=== PATIENT | male | born 1940 | race Two or more races ===

== ENCOUNTER 2018-08-07 03:34 | Emergency (ER) | payer MEDICARE, OTHER ==
[~2018-08-07] VITALS: Ht 165.1 cm; Wt 70.3 kg
--- NOTE | 2018-08-07 03:40 | NUR ---
PT BB RA FROM HOME FOR HEAD LAC S/P ARGUMENT -KO. SOILED BANDAGE NOTED ON HEAD. NAD NOTED. RESP EVEN AND UNLABORED. PT ON MONITOR IN BED 10. WILL CONTINUE TO MONITOR.
[2018-08-07] MEDS ORDERED: ACETAMINOPHEN 325 MG TABLET ONE (03:51)
[2018-08-07] MEDS ORDERED: TDAP [DIPH/PERTUSSIS/TET] 0.5 ML VIAL IM ONE ×2 (03:51→04:00)
[2018-08-07] MEDS ORDERED: LIDOCAINE 2%-EPI 1:100,000 30 ML VIAL ONE (03:52)
[2018-08-07] MEDS ORDERED: LIDOCAINE 1%-EPI 1:100,000 50 ML VIAL IJ ONE (04:00)
[2018-08-07] MEDS ORDERED: ACETAMINOPHEN 325 MG TABLET PO ONE (04:00)
--- NOTE | 2018-08-07 04:02 | NUR ---
PT TAKEN TO RADIOLOGY VIA [facility]
--- NOTE | 2018-08-07 04:20 | NUR ---
POLICE AT BEDSIDE
--- NOTE | 2018-08-07 07:33 | NUR ---
GAVE REPORT TO JOSEPH TREVIZO FOR [facility]
--- NOTE | 2018-08-07 07:48 | NUR ---
gayathri cavazos/abi
--- NOTE | 2018-08-07 07:50 | NUR ---
pt provided w/ wound care. Patient discharged to home in stable condition. Written and verbal after care instructions given. Patient verbalizes understanding of instruction.
[2018-08-07 07:52] VITALS: BP 150/99
== END 2018-08-07 07:53 | disposition home or self-care (01) ==
LOC: EDBD 03:36 → ER 03:36
DX: S01.81XA Laceration without foreign body of other part of head, initial encounter (principal); S01.01XA Laceration without foreign body of scalp, initial encounter; I10 Essential (primary) hypertension; F17.210 Nicotine dependence, cigarettes, uncomplicated; Z88.5 Allergy status to narcotic agent; W26.8XXA Contact with other sharp object(s), not elsewhere classified, initial encounter; Y93.89 Activity, other specified; Y92.89 Other specified places as the place of occurrence of the external cause; Y99.8 Other external cause status
CPT/HCPCS: 12001; 12011; 70450; 72125; 90471; 90715; 99284; A6403; J3490; L0172

== ENCOUNTER 2018-08-12 15:31 | Emergency (ER) | payer MEDICARE ==
[~2018-08-12] VITALS: Ht 165.1 cm; Wt 69.9 kg
[2018-08-12 15:44] VITALS: BP 139/65
== END 2018-08-12 16:19 | disposition home or self-care (01) ==
LOC: ER 15:31
DX: T81.30XA Disruption of wound, unspecified, initial encounter (principal); S01.01XD Laceration without foreign body of scalp, subsequent encounter; F17.200 Nicotine dependence, unspecified, uncomplicated; I10 Essential (primary) hypertension; Z88.5 Allergy status to narcotic agent; X58.XXXD Exposure to other specified factors, subsequent encounter
CPT/HCPCS: 99283; A6402

== ENCOUNTER 2018-09-25 14:08 | Emergency (ER) | payer MEDICARE ==
[~2018-09-25] VITALS: Ht 162.6 cm; Wt 68.0 kg
[2018-09-25 14:08] VITALS: BP 140/99
[2018-09-25] MEDS ORDERED: TAMS-12 PO (14:22)
[2018-09-25] MEDS ORDERED: AMLO5TAB9 PO (14:22)
== END 2018-09-25 15:12 | disposition home or self-care (01) ==
LOC: ER 14:11
DX: R06.02 Shortness of breath (principal); I10 Essential (primary) hypertension; F17.200 Nicotine dependence, unspecified, uncomplicated; Z88.8 Allergy status to other drugs, medicaments and biological substances; Z60.2 Problems related to living alone; Z79.899 Other long term (current) drug therapy